=== PATIENT | male | born 1965 | race American Indian/Alaskan Native ===

== ENCOUNTER 2019-06-05 13:18 | Outpatient (CLI) | payer BC ==
--- NOTE | 2019-06-05 14:54 | RAD ---
PA AND LATERAL CHEST: Date: 06/05/2019 HISTORY: Shortness of breath. FINDINGS: Heart size within normal limits. There are atherosclerotic changes in the aortic knob. The lungs are clear of infiltrates. Minimal osteophytic changes of the spine are present. IMPRESSION: No active intrathoracic disease. POS: [facility]
== END 2019-06-05 13:19 | disposition home or self-care (01) ==
LOC: BICRAD 13:18
PROVIDERS: ATTEND Specialist
DX: R06.02 Shortness of breath (principal)
CPT/HCPCS: 71046

== ENCOUNTER 2024-11-10 12:49 | Outpatient (CLI) | payer BC, OTHER, SELFPAY | END 2024-11-10 12:50 | disposition home or self-care (01) | LOC: SCSMRI 12:49 | PROVIDERS: ATTEND Surgery | DX: M51.16 Intervertebral disc disorders with radiculopathy, lumbar region (principal); M51.17 Intervertebral disc disorders with radiculopathy, lumbosacral region | CPT/HCPCS: 72148 ==